=== PATIENT | female | born 1950 | race Caucasian/White ===

== ENCOUNTER 2019-06-20 07:42 | Day surgery (SDC) | payer MEDICARE, MEDICAID ==
[~2019-06-20] VITALS: Ht 162.6 cm; Wt 71.8 kg
[~2019-06-20 07:42] MED LIST: ALBU8HFA PO; ALPR-624 PO; ASPI-1264 PO; BECL8.7A6 INH; FURO-150 PO; HCTZ25T PO; METO-539 PO; MULT-1141 PO; ONDA4TAB9 SL; PRAV40TA3 PO; SERT50TA PO; ZOLP10TA5 PO
[2019-06-20 07:55] VITALS: BP 181/96
[2019-06-20] MEDS ORDERED: MIDAZolam 5mg/5ml vial ONE (08:02)
[2019-06-20] MEDS ORDERED: LIDOcaine Viscous 15ml cup ONE (08:02)
[2019-06-20] MEDS ORDERED: fentaNYL/PF 50MCG/1 ML 2ML syringe ONE (08:02)
[2019-06-20] MEDS ORDERED: SOTA80TA PO (08:07)
[2019-06-20] MEDS ORDERED: APIX5TAB3 PO (08:08)
[2019-06-20] MEDS ORDERED: DULO30CA52 PO (08:09)
[2019-06-20] MEDS ORDERED: LOSA100T57 PO (08:12)
[2019-06-20] MEDS ORDERED: POTA8TAB8 PO (08:13)
[2019-06-20] MEDS ORDERED: MECL-111 PO (08:16)
[2019-06-20] MEDS ORDERED: ASPI-611 PO (08:16)
[2019-06-20 09:08] VITALS: BP 159/93
[2019-06-20 09:18] VITALS: BP 169/86
[2019-06-20 09:28] VITALS: BP 152/75
== END 2019-06-20 09:43 | disposition home or self-care (01) ==
LOC: GI LAB 07:42
PROVIDERS: ATTEND Internal Medicine Gastroenterology
DX: K29.50 Unspecified chronic gastritis without bleeding (principal); D17.5 Benign lipomatous neoplasm of intra-abdominal organs; K44.9 Diaphragmatic hernia without obstruction or gangrene; Z79.899 Other long term (current) drug therapy
CPT/HCPCS: 43239; G0500; J2250; J3010; J7040; 88305; 88342; 99152; A4620

== ENCOUNTER 2019-10-05 09:03 | Day surgery (SDC) | payer MEDICARE, MEDICAID ==
[~2019-10-05] VITALS: Ht 160 cm; Wt 68.2 kg
[~2019-10-05 09:03] MED LIST changes: +APIX5TAB3 PO; -ASPI-1264 PO; +ASPI-611 PO; -BECL8.7A6 INH; +DULO30CA52 PO; -HCTZ25T PO; +LOSA100T57 PO; +MECL-111 PO; -METO-539 PO; -MULT-1141 PO; -ONDA4TAB9 SL; +POTA8TAB8 PO; +SOTA80TA PO
[2019-10-05] MEDS ORDERED: fentaNYL/PF 50MCG/1 ML 2ML syringe ONE ×2 (09:17)
[2019-10-05] MEDS ORDERED: MIDAZolam 5mg/5ml vial ONE (09:18)
[2019-10-05 09:20] VITALS: BP 194/92
[2019-10-05] MEDS ORDERED: FLUT16SP2 BOTHNARES (09:38)
[2019-10-05] MEDS ORDERED: TIOT4MIS3 INH (09:39)
[2019-10-05] MEDS ORDERED: BUDE180A INH (09:40)
[2019-10-05] MEDS ORDERED: LEVA15HF4 INH (09:41)
[2019-10-05 10:10] VITALS: BP 143/72
[2019-10-05 10:20] VITALS: BP 113/57
[2019-10-05 10:30] VITALS: BP 133/67
[2019-10-05 10:40] VITALS: BP 165/85
== END 2019-10-05 10:50 | disposition home or self-care (01) ==
LOC: GI LAB 09:03
PROVIDERS: ATTEND Internal Medicine Gastroenterology
DX: R19.4 Change in bowel habit (principal); D12.5 Benign neoplasm of sigmoid colon; K62.1 Rectal polyp; K57.30 Diverticulosis of large intestine without perforation or abscess without bleeding; K64.8 Other hemorrhoids; Z86.010 Personal history of colon polyps
CPT/HCPCS: 45380; 45385; 99153; C1773; G0500; J2250; J3010; J7040; 88305; 99152; A4620

== ENCOUNTER 2020-01-04 18:34 | Emergency (ER) | payer MEDICARE, MEDICAID ==
[~2020-01-04] VITALS: Ht 162.6 cm; Wt 68.2 kg
[~2020-01-04 18:34] MED LIST changes: +BUDE180A INH; +FLUT16SP2 BOTHNARES; +LEVA15HF4 INH; -MECL-111 PO; +MECL-159 PO; +TIOT4MIS3 INH
[2020-01-04 19:00] LABS: BASOPHILS # (AUTO) 0.1 X10'3 (0-0.2); BASOPHILS % (AUTO) 1.2 % (0-1); EOSINOPHILS # (AUTO) 0.1 X10'3 (0-0.9); EOSINOPHILS % (AUTO) 2.2 % (0-6); HEMATOCRIT 35.7 % (35.0-45.0); HEMOGLOBIN 10.7 g/dl (12.0-16.0); LYMPHOCYTES # (AUTO) 1.6 X10'3 (1.1-4.8); LYMPHOCYTES % (AUTO) 28.4 % (21-51); MEAN CORPUSCULAR HEMOGLOBIN 21.7 PG (27.0-31.0); MEAN CORPUSCULAR HGB CONC 29.9 g/dL (33.0-36.5); MEAN CORPUSCULAR VOLUME 72.5 FL (78-98); MEAN PLATELET VOLUME 8.3 FL (7.4-10.4); MONOCYTES # (AUTO) 0.6 X10'3 (0-0.9); MONOCYTES % (AUTO) 11.3 % (2-12); NEUTROPHILS # (AUTO) 3.2 X10'3 (1.8-7.7); NEUTROPHILS % (AUTO) 56.9 % (42-75); PLATELET COUNT 448 X10'3 (140-440); RED BLOOD COUNT 4.93 X10'6 (4.20-5.60); RED CELL DISTRIBUTION WIDTH 31.9 % (11.5-14.5); WHITE BLOOD COUNT 5.6 X10'3 (4.5-11.0)
[2020-01-04 19:12] LABS: PARTIAL THROMBOPLASTIN TIME 27 SECONDS (22-32)
[2020-01-04 19:14] LABS: ALANINE AMINOTRANSFERASE 9 U/L (12-78); ALBUMIN 3.6 G/DL (3.4-5.0); ALBUMIN/GLOBULIN RATIO 0.9 (1.1-1.5); ALKALINE PHOSPHATASE 97 IU/L (46-116); ANION GAP 8 (8-16); ASPARTATE AMINO TRANSFERASE 23 U/L (10-37); BILIRUBIN,TOTAL 0.3 MG/DL (0.1-1.0); BLOOD UREA NITROGEN 12 MG/DL (7-18); BUN/CREATININE RATIO 16.7 (6.6-38.0); CALCIUM 9.3 MG/DL (8.5-10.1); CHLORIDE 107 MMOL/L (99-107); CREATININE 0.72 MG/DL (0.40-0.90); GLUCOSE 103 MG/DL (70-104); POTASSIUM 3.8 MMOL/L (3.5-5.1); SODIUM 144 MMOL/L (135-145); TOTAL CARBON DIOXIDE 29.5 MMOL/L (24-32); TOTAL PROTEIN 7.6 G/DL (6.4-8.2); eGFR 80 ML/MIN
[2020-01-04 19:41] LABS: PLATELET ESTIMATE NORMAL
[2020-01-04 19:42] LABS: ANISOCYTOSIS 3+; POIKILOCYTOSIS FEW
[2020-01-04 19:43] LABS: HYPOCHROMASIA 1+; MICROCYTOSIS 2+
[2020-01-04] MEDS ORDERED: diltiazem 5mg/ml 5ml inj. IV ONE ×2 (20:00→20:50)
[2020-01-04] MEDS ORDERED: diltiazem 30mg tablet PO ONE ×3 (20:00→22:10)
[2020-01-04] MEDS ORDERED: normal saline 1000ML IV soln IVB ONE (20:15)
[2020-01-04 20:26] LABS: CLARITY,URINE CLEAR (Clear); COLOR,URINE STRAW (Yellow); GLUCOSE, URINE NEGATIVE (Neg); KETONES,URINE NEGATIVE (Neg); LEUKOCYTE ESTERASE ,URINE TRACE (Neg); NITRITES, URINE NEGATIVE (Neg); OCCULT BLOOD,URINE NEGATIVE (Neg); PROTEIN,URINE NEGATIVE (Neg); UROBILINOGEN,URINE 0.2 E.U/dL (0.2-1.0)
[2020-01-04 20:40] LABS: UA COLLECTION TYPE CLN CATCH MIDSTREAM
[2020-01-04 20:42] LABS: BACTERIA,URINE 1+ /HPF (Neg); RBC,URINE 0-2 /HPF (0-2); SQUAMOUS EPITHELIAL CELL,UR NONE SEEN /LPF (FEW); WBC,URINE 0-4 /HPF (0-4)
[2020-01-05] MEDS ORDERED: magnesium 2GM in 50ml NS 50 ML IV ONE
[2020-01-05] MEDS ORDERED: diltiazem 5mg/ml 5ml inj. IV ONE
[2020-01-05] MEDS ORDERED: DILT-36 PO (00:55)
[2020-01-05 01:49] VITALS: BP 128/84
== END 2020-01-05 01:51 | disposition home or self-care (01) ==
LOC: ER 18:34
DX: I48.91 Unspecified atrial fibrillation (principal); E78.00 Pure hypercholesterolemia, unspecified; J44.9 Chronic obstructive pulmonary disease, unspecified; F17.210 Nicotine dependence, cigarettes, uncomplicated; Z86.2 Personal history of diseases of the blood and blood-forming organs and certain disorders involving the immune mechanism; Z90.710 Acquired absence of both cervix and uterus; Z98.890 Other specified postprocedural states; Z88.5 Allergy status to narcotic agent; Z88.8 Allergy status to other drugs, medicaments and biological substances; Z79.82 Long term (current) use of aspirin; Z79.01 Long term (current) use of anticoagulants; Z79.899 Other long term (current) drug therapy
CPT/HCPCS: 36415; 71045; 80053; 81001; 84484; 85025; 85730; 93005; 96365; 96375; 96376; 99285; J3475; J7030; 96366; J3490

== ENCOUNTER 2020-04-25 23:43 | Emergency (ER) | payer MEDICARE, MEDICAID ==
[~2020-04-25] VITALS: Ht 162.6 cm; Wt 70.0 kg
[~2020-04-25 23:43] MED LIST changes: +DILT-36 PO
[2020-04-25] MEDS ORDERED: normal saline 1000ml 1,000 ML IV ONE (23:55)
[2020-04-25] MEDS ORDERED: magnesium 2GM in 50ml NS 50 ML IV ONE (23:55)
[2020-04-25] MEDS ORDERED: diltiazem 5mg/ml 5ml inj. IV ONE (23:55)
[2020-04-26] MEDS ORDERED: diltiazem 5mg/ml 5ml inj. IV ONE ×2 (00:20→01:50)
[2020-04-26 00:25] LABS: BASOPHILS # (AUTO) 0.1 X10'3 (0-0.2); HEMOGLOBIN 10.3 g/dl (12.0-16.0); LYMPHOCYTES # (AUTO) 1.5 X10'3 (1.1-4.8); RED BLOOD COUNT 4.39 X10'6 (4.20-5.60); WHITE BLOOD COUNT 9.5 X10'3 (4.5-11.0)
[2020-04-26 00:31] LABS: BASOPHILS % (AUTO) 0.7 % (0-1); EOSINOPHILS # (AUTO) 0.1 X10'3 (0-0.9); EOSINOPHILS % (AUTO) 0.7 % (0-6); HEMATOCRIT 33.8 % (35.0-45.0); LYMPHOCYTES % (AUTO) 15.6 % (21-51); MEAN CORPUSCULAR HEMOGLOBIN 23.4 PG (27.0-31.0); MEAN CORPUSCULAR HGB CONC 30.3 g/dL (33.0-36.5); MEAN CORPUSCULAR VOLUME 77.1 FL (78-98); MEAN PLATELET VOLUME 8.8 FL (7.4-10.4); MONOCYTES # (AUTO) 1.6 X10'3 (0-0.9); MONOCYTES % (AUTO) 16.8 % (2-12); NEUTROPHILS # (AUTO) 6.3 X10'3 (1.8-7.7); NEUTROPHILS % (AUTO) 66.2 % (42-75); PLATELET COUNT 424 X10'3 (140-440); RED CELL DISTRIBUTION WIDTH 29.1 % (11.5-14.5)
[2020-04-26 00:39] LABS: ALANINE AMINOTRANSFERASE 31 U/L (12-78); ALBUMIN 3.4 G/DL (3.4-5.0); ALBUMIN/GLOBULIN RATIO 1.1 (1.1-1.5); ALKALINE PHOSPHATASE 84 IU/L (46-116); ANION GAP 10 (8-16); ASPARTATE AMINO TRANSFERASE 11 U/L (10-37); BILIRUBIN,TOTAL 0.4 MG/DL (0.1-1.0); BLOOD UREA NITROGEN 12 MG/DL (7-18); BUN/CREATININE RATIO 15.2 (6.6-38.0); CALCIUM 8.2 MG/DL (8.5-10.1); CHLORIDE 108 MMOL/L (99-107); CREATININE 0.79 MG/DL (0.40-0.90); GLUCOSE 115 MG/DL (70-104); POTASSIUM 3.2 MMOL/L (3.5-5.1); SODIUM 147 MMOL/L (135-145); TOTAL CARBON DIOXIDE 29.2 MMOL/L (24-32); TOTAL PROTEIN 6.6 G/DL (6.4-8.2); eGFR 72 ML/MIN
[2020-04-26 00:46] LABS: MAGNESIUM 2.1 MG/DL (1.5-2.4)
[2020-04-26] MEDS ORDERED: potassium Cl 20 mEq SR tablet PO STA (00:48)
[2020-04-26 00:49] LABS: TOTAL CELLS COUNTED 100
[2020-04-26 00:50] LABS: ANISOCYTOSIS 3+; HYPOCHROMASIA 1+; MICROCYTOSIS 2+; PLATELET ESTIMATE NORMAL; POIKILOCYTOSIS 1+
[2020-04-26] MEDS ORDERED: metoprolol succinate 25mg (24-HOUR) SR. Tablet PO ONE ×3 (00:50→08:00)
--- NOTE | 2020-04-26 00:51 | NUR ---
SPOKE WITH MALCOLM ERICKSON AND CLARIFIED METOPROLOL MEDICAITON TO BE GIVEN NOW, NOT AT 0800. ORDER CHANGED REQUESTED.
--- NOTE | 2020-04-26 01:20 | NUR ---
Note daryl in EDM - 04/26/20 at 0224 by [email or web address] pt getting a paracentesis done. pt has first bottle filling up with yellow ascitic fluid from abd. pt tolerating well. Per Dr. Padilla, when first bottle fills up, place 2nd bottle to drain then reassess.
--- NOTE | 2020-04-26 01:24 | NUR ---
Jewels brito in [facility] - 04/26/20 at 0224 by [email or web address] 2nd liter placed for paracentesis drainage.
--- NOTE | 2020-04-26 02:25 | NUR ---
Dr. Padilla changed cardizem order from 10mg to 5mg. pt was only given 5mg per order and toprol po. Will DC when HR is below 100
--- NOTE | 2020-04-26 03:21 | NUR ---
Dr. Padilla made aware, the pts pulse went as low as 104 but she's been mostly ranging from 104-115 a-fib. Pt states she usually runs in the low 100's. She states she feel's much better. Dr. Padilla ok to DC pt.
[2020-04-26 03:22] VITALS: BP 138/87
== END 2020-04-26 04:04 | disposition home or self-care (01) ==
LOC: ER 23:44
DX: I48.20 Chronic atrial fibrillation, unspecified (principal); R53.1 Weakness; E78.00 Pure hypercholesterolemia, unspecified; J44.9 Chronic obstructive pulmonary disease, unspecified; Z86.2 Personal history of diseases of the blood and blood-forming organs and certain disorders involving the immune mechanism; Z90.710 Acquired absence of both cervix and uterus; Z98.890 Other specified postprocedural states; Z88.8 Allergy status to other drugs, medicaments and biological substances; Z79.82 Long term (current) use of aspirin; Z79.899 Other long term (current) drug therapy
CPT/HCPCS: 71045; 80053; 83735; 83880; 84484; 85025; 93005; 96365; 96375; 96376; 99285; J3475; J7030; J3490

== ENCOUNTER 2020-07-18 15:33 | Outpatient (CLI) | payer MEDICARE, MEDICAID ==
[~2020-07-18] VITALS: Ht 162.6 cm; Wt 65.8 kg
[2020-07-18 16:10] LABS: TOTAL HEMOGLOBIN 16.3 G/dl (12.0-16.0)
[2020-07-18] MEDS ORDERED: albuterol 2.5 MG/3 ML nebule NEB ONE (16:40)
== END 2020-07-18 23:59 | disposition home or self-care (01) ==
LOC: RT 15:33
PROVIDERS: ATTEND Specialist
DX: J44.9 Chronic obstructive pulmonary disease, unspecified (principal); R06.02 Shortness of breath; Z79.899 Other long term (current) drug therapy
CPT/HCPCS: 85018; 94060; 94727; 94729; 94760